=== PATIENT | male | born 1990 | race Caucasian/White ===

== ENCOUNTER 2020-06-13 19:41 | Emergency (ER) | payer OTHER ==
[~2020-06-13] VITALS: Ht 182.9 cm; Wt 88.5 kg
[2020-06-13 19:50] VITALS: BP 141/85
== END 2020-06-13 20:10 | disposition home or self-care (01) ==
LOC: ER 19:41
DX: J06.9 Acute upper respiratory infection, unspecified (principal); Z20.822 Contact with and (suspected) exposure to COVID-19